=== PATIENT | male | born 1940 | race Caucasian/White ===

== ENCOUNTER 2019-09-22 15:45 | Inpatient (IN) ==
[2019-09-22] MEDS ORDERED: ONDANSETRON HCL/PF 2 MG/ML VIAL IV ONE (16:04)
[2019-09-22] MEDS ORDERED: MORPHINE SULFATE 4 MG/ML SYRG IV ONE (16:04)
--- NOTE | 2019-09-22 16:15 | ERNOTE ---
Abdominal HPI - Narrative Date of Service: 09/22/19 - General Chief Complaint: Abdominal Pain Time Seen by Provider: 09/22/19 15:54 Source: patient, family Exam Limitations: no limitations - Immun/Allergies/Home Medications Immunizatons: IMMUNIZATION HX Immunizations Up to Date Yes History of Influenza Vaccine Yes Hx Pneumococcal Vaccination Yes Allergies/Adverse Reactions: Allergies No Known Allergies Allergy (Verified 04/12/16 14:02) Home Medications: HOME MEDICATIONS Aspirin [Aspirin Chewable] 81 mg PO DAILY 04/09/16 [Last Taken 09/22/19] Metoprolol Tartrate [Lopressor] 25 mg PO BID 04/09/16 [Last Taken 09/22/19] Simvastatin [Zocor] 40 mg PO HS 04/09/16 [Last Taken 09/21/19] amLODIPine BESYLATE [Norvasc] 5 mg PO DAILY 09/22/19 [Last Taken 09/22/19] - Pain Score Pain Score #1 Pain Score: 10 Abdominal Pain Onset Location: RLQ - severe, LLQ - severe, periumbilical - moderate, generalized abdomen - mild - History of Present Illness Narrative: The patient is a 79 year old male who presents for abdominal pain which has been present since Saturday @ 0100. There are associated symptoms lightheadedness, fatigue, fever, chills and vomiting. The patient reports low abdominal pain, 10/10. There are no alleviating factors. There are aggravating factors of activity and oral intake. Previous treatments have included: none. The past medical history includes: HLD and HTN. The social history is negative. The patient has had no known ill contacts. 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 Patient reports watery bowel movement yesterday followed by normal bowel movement. Patient denies blood in stool. Patient was evaluated at [facility] yesterday with CT abdomen/pelvis W/O which they reported to patient as negative and dx with enteritis. Review of Systems - Review of Systems Constitutional: Present: fever, chills, diaphoresis, fatigue EYE: Present: no symptoms reported ENT: Present: no symptoms reported. Absent: ear pain, nasal drainage, sore throat Respiratory: Present: no symptoms reported. Absent: shortness of breath, cough Cardiology: Present: no symptoms reported. Absent: chest pain Gastrointestinal/Abdominal: Present: nausea, vomiting, abdominal pain, eating less, drinking less Genitourinary: Present: decreased urinary output. Absent: dysuria Musculoskeletal: Present: no symptoms reported. Absent: back pain Skin: Present: no symptoms reported. Absent: rash Neurological: Present: dizziness/light-headedness, weakness All Other Systems: All systems neg except as marked Medical History (Last Reviewed 09/22/19 @ 20:48 by Alaina Johnson MD) HLD (hyperlipidemia) HTN (hypertension) Surgical History: Surgical History (Last Reviewed 09/22/19 @ 20:48 by Alaina Johnson MD) History of colonoscopy History of surgery on left wrist ORIF L radius Family History: Family History (Last Reviewed 09/22/19 @ 20:51 by JOY Juárez) Mother Father Social History: (Last Reviewed 09/22/19 @ 20:48 by Alaina Johnson MD) Tobacco: Smoking Status: Former smoker, quit 30 years Physical Exam - Physical Exam General Appearance: Present: wd/wn, alert, moderate distress Head Exam: Present: normal inspection Eye Exam: Normal inspection: bilateral Neck: Present: normal inspection Respiratory: Present: no respiratory distress, no accessory muscle use, lungs clear, rhonchi - left base Cardiovascular/Chest: Present: regular rate, rhythm, no murmur Gastrointestinal/Abdominal: Present: nondistended, soft, no organomegaly, tenderness - periumbilical and lower abdomen, moderate discomfort- mild diffuse discomfort to upper abdomen, abnormal bowel sounds - hypoactive, guarding - LLQ, RLQ. Absent: mass Neurological Exam: Present: alert, oriented, normal mood/affect, no motor/sensory deficits Skin Exam: Present: normal color, warm/dry Progress - Date and Time Seen: Date and Time: 09/22/19 17:54 Patient upon arrival having emesis with smell of stool. Patient pain intolerable. Administration of morphine without relief. Administered dose of Dilaudid pain remains >5/10 but more tolerable. Patient drinking oral contrast for reimaging for evaluation of vomiting and abdominal pain. Patient without recurrent vomiting after administration of anti-emetic. Records from ER visit [facility] yesterday obtained and reviewed. 09/22/19 18:49 Patient remains without recurrent emesis. Patient improved but remains present. Patient visiting with family. Awaiting CT abd/pelvis for further evaluation. CRP 2.3 yesterday increased to 19.4. Gastric-occult positive. WBC 13.9 yesterday decreased to 9.9. Remains to have elevation to neutrophil count with left shift. 09/22/19 20:11 present for patient evaluation. Reviewed imaging results with patient as well as plan of care. - Results and Orders Patient's Lab Results:: I have reviewed the patient's lab results. - Vital Signs Patient's Vital Signs:: I have reviewed the patient's vital signs. Vital Signs: Vital Signs 09/22/19 15:46 Temperature 36.6 C Pulse Rate 94 Respiratory Rate 16 Blood Pressure 106/72 O2 Sat by Pulse Oximetry 94 - X-Ray X-Ray #1 X-Ray: chest Interpretation: Reviewed by me X-ray Comments: IMPRESSION: NO ACUTE CARDIOPULMONARY ABNORMALITY IDENTIFIED. Electronically signed by Greg Capellan D.O.. X-Ray #2 X-Ray: abdomen Interpretation: Reviewed by me X-ray Comments: IMPRESSION: NONSPECIFIC NONOBSTRUCTIVE BOWEL GAS PATTERN SUGGESTIVE OF VIRAL ENTERITIS. Electronically signed by Greg Capellan D.O.. - CT/Ultrasound CT/Ultrasound Narrative: Real radiology preliminary report: Tubular structure extending from the base of the cecum which appears to contain hyperdense calcium or metallic densities. Inspissated barium should be a consideration. The structure is blind ended and this most likely represents an enlarged abnormal appendix and acute appendicitis. Please correlate with any surgical history. No perforation or abscess. Small amount of free fluid in the deep pelvis. Enlarged prostate gland. Urinary bladder wall is thickened which may be reflected of under distention, cystitis or bladder outlet obstruction. No ureteral calculi or upper urinary obstruction. L1 compression fracture of indeterminate age. - Progress/Reassessment Chief Complaint: Abdominal Pain Progress:: Improved Departure Clinical Impression: Acute appendicitis Qualifiers: Acute appendicitis type: with generalized peritonitis Appendicitis gangrene presence: unspecified whether gangrene present Appendicitis perforation presence: unspecified whether perforation present Appendicitis abscess presence: unspecified whether abscess present Qualified Code(s): K35.20 - Acute appendicitis with generalized peritonitis, without abscess - Departure Disposition: Still a patient Condition: Good
[2019-09-22 16:30] LABS: Hematocrit 51.3 % (42.0-52.0); Hemoglobin 17.6 gm/dL (13.5-18.0); Mean Cell Volume 86.8 fl (78-100); Mean Corpuscular Hemoglobin 29.8 pg (27-31); Mean Corpuscular Hgb Conc 34.3 g/dl (32-36); Mean Platelet Volume 9.8 fl (8-11.3); Neutrophil # 8.5 K/mm3 (1.3-6.0); Neutrophil % 86.3 % (42-75.0); Platelet Count 206 K/mm3 (150-450); Red Blood Count 5.91 M/mm3 (4.7-6.0); Red Cell Distribution Width 12.6 % (11.5-14.0); White Blood Count 9.9 K/mm3 (4.0-10.5)
[2019-09-22 16:45] LABS: Albumin * 3.9 gm/dl (3.4-5.0); Anion Gap 17.1 mmol/L (6.8-13.8); BUN/Creatinine Ratio 13.3 (9.0-21.6); Bilirubin, Total 4.8 mg/dL (0.0-1.1); Ca. Corrected For Albumin 8.6 mg/dL (8.4-10.2); Calcium * 8.8 mg/dL (7.9-10.9); Carbon Dioxide 24.2 mmol/L (24-32.6); Potassium 3.3 mmol/L (3.4-4.6); Total Protein 7.9 gm/dL (6.2-8.2)
[2019-09-22] MEDS ORDERED: HYDROmorphone HCL 1 MG/ML DISP.SYRIN IV ONE (16:48)
[2019-09-22] MEDS ORDERED: DIATRIZOATE MEGLUMINE, SODIUM 30 ML BTL PO ONE ×2 (16:49→16:50)
[2019-09-22] MEDS ORDERED: NORMAL SALINE 1,000 ML IV ONE (16:49)
[2019-09-22 16:55] LABS: CRP 19.4 mg/dL (0.0-0.9)
--- NOTE | 2019-09-22 20:44 | ANES ---
Anesthesia Pre Procedure Eval Vitals/Labs: Last Vital Signs Temp 36.6 C 09/22/19 15:46 Pulse 89 09/22/19 20:08 Resp 22 H 09/22/19 20:08 BP 129/83 09/22/19 20:08 Pulse Ox 93 09/22/19 20:08 HOME MEDICATIONS Aspirin [Aspirin Chewable] 81 mg PO DAILY 04/09/16 [Last Taken 09/22/19] Metoprolol Tartrate [Lopressor] 25 mg PO BID 04/09/16 [Last Taken 09/22/19] Simvastatin [Zocor] 40 mg PO HS 04/09/16 [Last Taken 09/21/19] amLODIPine BESYLATE [Norvasc] 5 mg PO DAILY 09/22/19 [Last Taken 09/22/19] Allergies/Adverse Reactions: Allergies Allergy/AdvReac Type Severity Reaction Status Date / Time No Known Allergies Allergy Verified 04/12/16 14:02 - Planned Procedure Planned Procedure: stomach pain Medication List Reviewed:: Yes Allergies Verified: Yes Medical History (Last Reviewed 09/22/19 @ 20:41 by Anant Benitez CRNA) HLD (hyperlipidemia) HTN (hypertension) Surgical History (Last Reviewed 09/22/19 @ 20:41 by Anant Benitez CRNA) History of colonoscopy History of surgery on left wrist ORIF L radius - Family Anesthesia History Family History:: no untoward family reactions to anesthesia, no familial bleeding tendencies, no family history of clotting disorders, no family history of premature - Airway/Neck/Teeth Denture Type: Partial upper, Partial lower Neck Exam: full range of motion Mallampatti Score: 3 Thyromental (T-M) distance: > 6 cm Mandibulo Hyoid distance: > 3 cm - Respiratory Respiratory History: sleep apnea Respiratory Physical: lungs clear Smoking Status: Former smoker - quit 30 years Sleep Apnea currently treated: No - refuses treatment Sleep Apnea by current assessment: Yes Discussed Risks/Treatment of MACI: Yes - Cardiovascular Cardiac History: [place] - 2006, CAD, hypertension, hyperlipidemia Tolerate Activity: Fair Heart Sounds: S1 & S2, Regular - Gastrointestinal NPO since: toast this am gatorade 1400 - Anesthesia Assessment and Plan ASA Class: PS, III, E Anesthesia Type Plan: General ET Planned difficult intubation/equipment available: Yes
[2019-09-22] MEDS ORDERED: PROPOFOL VIAL IV ONE (20:50)
[2019-09-22] MEDS ORDERED: ONDANSETRON HCL/PF 2 MG/ML VIAL ONE (20:50)
[2019-09-22] MEDS ORDERED: KETOROLAC TROMETHAMINE 30 MG/ML VIAL ONE (20:50)
[2019-09-22] MEDS ORDERED: DEXAMETHASONE SODIUM PHOSPHATE 10 MG/ML VIAL ONE (20:50)
[2019-09-22] MEDS ORDERED: SUCCINYLCHOLINE CHLORIDE 20 MG/ML VIAL ONE (20:50)
[2019-09-22] MEDS ORDERED: ISOPROPYL ALCOHOL 480 APPL BTL MC ONE (20:52)
[2019-09-22] MEDS ORDERED: MUPIROCIN 22 APPL TUBE TP ONE ×2 (20:52→23:33)
--- NOTE | 2019-09-22 20:54 | HP ---
Chief Complaint - Chief Complaint Date of Service: 09/22/19 Time of Service: 20:44 Chief Complaint: appendicitis History of Present Illness: He woke up 1AM yesterday with lower abdominal pain. Was evaluated in [place] with non-contrast CT and told he had enteritis and to follow a BRAT diet His pain continued today and got worse so he came here. CT shows inflammation and fluid RLQ with barium in the appendix. Had colonoscopy [facility] couple of months ago with a completion barium enema. Only other abdominal surgery was laparoscopic cholecystectomy. Medical History (Last Reviewed 09/22/19 @ 20:48 by Alaina Johnson MD) HLD (hyperlipidemia) HTN (hypertension) Surgical History: Surgical History (Last Reviewed 09/22/19 @ 20:48 by Alaina Johnson MD) History of colonoscopy History of surgery on left wrist ORIF L radius Social History: (Last Reviewed 09/22/19 @ 20:48 by Alaina Johnson MD) Tobacco: Smoking Status: Former smoker, quit 30 years Review Of Systems (GEN) - Review of Systems Generalized/Overall Review: Present: Weakness, Malaise. Absent: Chills, Fever EENTM: Present: Other - bad breath Respiratory: Absent: Cough, Shortness of Breath Cardiac: Absent: Chest Pain, Edema, Palpitations Abdominal: Present: Vomiting, Abdominal Pain Genitourinary: Present: No Symptoms Reported Musculoskeletal: Present: No Symptoms Reported Neurological: Present: No Symptoms Reported Skin: Present: No Symptoms Reported Immunizations: IMMUNIZATION HX Immunizations Up to Date Yes History of Influenza Vaccine Yes Hx Pneumococcal Vaccination Yes Allergies/Adverse Reactions: Allergies Allergy/AdvReac Type Severity Reaction Status Date / Time No Known Allergies Allergy Verified 04/12/16 14:02 Home Medications: HOME MEDICATIONS Aspirin [Aspirin Chewable] 81 mg PO DAILY 04/09/16 [Last Taken 09/22/19] Metoprolol Tartrate [Lopressor] 25 mg PO BID 04/09/16 [Last Taken 09/22/19] Simvastatin [Zocor] 40 mg PO HS 04/09/16 [Last Taken 09/21/19] amLODIPine BESYLATE [Norvasc] 5 mg PO DAILY 09/22/19 [Last Taken 09/22/19] Exam - Exam Vital Signs: Vital Signs - Last Taken Temp 36.6 C 09/22/19 15:46 Pulse 89 09/22/19 20:08 Resp 22 H 09/22/19 20:08 BP 129/83 09/22/19 20:08 Pulse Ox 93 09/22/19 20:08 Constitutional: Present: Alert, Oriented x3, Cooperative, Well developed, Well nourished, Overweight ENT Exam: Present: normal ENT inspection, other - partials Eye Exam: bilateral eye: normal inspection Neck: Present: full range of motion, normal inspection Respiratory: Present: lungs clear, normal breath sounds, no respiratory distress Cardiovascular/Chest: Present: normal peripheral pulses, regular rate, rhythm, no murmur Abdomen: Present: other - distended. 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 as tested, normal cerebellar test, no motor/sensory deficits Appearance: Present: appropriate appearance, appropriate insight Eye contact: Present: cooperative, good eye contact, normal speech Thoughts: Present: normal thought pattern Diagnostic Studies: Abnormal Lab Results 09/22/19 09/22/19 09/22/19 Range/Units 16:22 16:22 Unknown Neutrophils % 86.3 H (42-75.0) % Lymphocytes % 6.1 L (20-51) % Neutrophils # 8.5 H (1.3-6.0) K/mm3 Lymphocytes # 0.60 L (1.5-3.5) k/mm3 Potassium 3.3 L (3.4-4.6) mmol/L Anion Gap 17.1 H (6.8-13.8) mmol/L Creatinine 1.43 H (0.4-1.4) mg/dL Est GFR (Non-Af Amer) 51 L D (60-130) mL/min Random Glucose 134 H (70-110) mg/dL Total Bilirubin 4.8 H (0.0-1.1) mg/dL C-Reactive Prot, Quant 19.4 H (0.0-0.9) mg/dL Gastric Occult Blood Positive H Laboratory Results WBC 9.9 K/mm3 (4.0-10.5) 09/22/19 16:22 RBC 5.91 M/mm3 (4.7-6.0) 09/22/19 16:22 Hgb 17.6 gm/dL (13.5-18.0) 09/22/19 16:22 Hct 51.3 % (42.0-52.0) 09/22/19 16:22 MCV 86.8 fl (78-100) 09/22/19 16:22 MCH 29.8 pg (27-31) 09/22/19 16:22 MCHC 34.3 g/dl (32-36) 09/22/19 16:22 RDW 12.6 % (11.5-14.0) 09/22/19 16:22 Plt Count 206 K/mm3 (150-450) 09/22/19 16:22 MPV 9.8 fl (8-11.3) 09/22/19 16:22 Immature Gran % (Auto) 0.20 % (0.001-0.429) 09/22/19 16:22 Immature Gran # (Auto) 0.02 K/mm3 (0.000-0.0310) 09/22/19 16:22 Neutrophils % 86.3 % (42-75.0) H 09/22/19 16:22 Lymphocytes % 6.1 % (20-51) L 09/22/19 16:22 Monocytes % 7.1 % (0.0-9) 09/22/19 16:22 Eosinophils % 0.0 % (0.0-3.0) 09/22/19 16:22 Basophils % 0.3 % (0.0-1.0) 09/22/19 16:22 Nucleated RBC % 0.0 k/mm3 (0-1) 09/22/19 16:22 Neutrophils # 8.5 K/mm3 (1.3-6.0) H 09/22/19 16:22 Lymphocytes # 0.60 k/mm3 (1.5-3.5) L 09/22/19 16:22 Monocytes # 0.7 k/mm3 (0.0-1.0) 09/22/19 16:22 Eosinophils # 0.0 k/mm3 (0.0-0.7) 09/22/19 16:22 Absolute Basophils 0.0 k/mm3 (0.0-0.1) 09/22/19 16:22 Sodium 137 mmol/L (132-142) 09/22/19 16:22 Plasma Sodium 138 mmol/L (130-142) 09/22/19 16:22 Potassium 3.3 mmol/L (3.4-4.6) L 09/22/19 16:22 Chloride 99 mmol/L (97-106) 09/22/19 16:22 Carbon Dioxide 24.2 mmol/L (24-32.6) 09/22/19 16:22 Anion Gap 17.1 mmol/L (6.8-13.8) H 09/22/19 16:22 BUN 19 mg/dL (6-23) 09/22/19 16:22 Creatinine 1.43 mg/dL (0.4-1.4) H 09/22/19 16:22 Est GFR (Non-Af Amer) 51 mL/min (60-130) L D 09/22/19 16:22 BUN/Creatinine Ratio 13.3 (9.0-21.6) 09/22/19 16:22 Random Glucose 134 mg/dL (70-110) H 09/22/19 16:22 Calcium 8.8 mg/dL (7.9-10.9) 09/22/19 16:22 Calcium Adj for Albumin 8.6 mg/dL (8.4-10.2) 09/22/19 16:22 Total Bilirubin 4.8 mg/dL (0.0-1.1) H 09/22/19 16:22 AST 31 U/L (0-48) 09/22/19 16:22 ALT 27 U/L (19-67) 09/22/19 16:22 Alkaline Phosphatase 71 U/L (50-170) 09/22/19 16:22 C-Reactive Prot, Quant 19.4 mg/dL (0.0-0.9) H 09/22/19 16:22 Total Protein 7.9 gm/dL (6.2-8.2) 09/22/19 16:22 Albumin 3.9 gm/dl (3.4-5.0) 09/22/19 16:22 Amylase 57 U/L (25-115) 09/22/19 16:22 Lipase 185 U/L (73-393) 09/22/19 16:22 Gastric Occult Blood Positive H 09/22/[address] and plain film images and reports reviewed Assessment/Plan - Assessment/Plan (1) Acute appendicitis Assessment: Appendicitis and appendectomy explained. risks and expected hospital course explained. After an interactive discussion his questions were answered to his apparent satisfaction and he has given informed consent for appendectomy chlorhexidine wipes, IV Mefoxin, SCD's Problem: Acute Qualifiers: Acute appendicitis type: with generalized peritonitis Appendicitis gangrene presence: unspecified whether gangrene present Appendicitis perforation presence: unspecified whether perforation present Appendicitis abscess presence: unspecified whether abscess present Qualified Code(s): K35.20 - Acute appendicitis with generalized peritonitis, without abscess
[2019-09-22] MEDS: RINGER'S SOLUTION,LACTATED 1,000 ML IV PRN ×2 (21:10→23:30)
[2019-09-22] MEDS ORDERED: CEFOXITIN SODIUM 2 GM in DEXTROSE 5 % IN WATER 100 ML IV PRN ×2 (22:00)
[2019-09-22] MEDS ORDERED: oxyCODONE HCL/ACETAMINOPHEN 1 TAB TABLET PO PRN (23:48)
--- NOTE | 2019-09-22 23:53 | ANES ---
Post Anesthesia Discharge - Transfer of Care Transfer of Care handoff given to nurse: Yes - Discharge from PACU Discharge from PACU when meets criteria: Yes - Comfortable in PACU.
--- NOTE | 2019-09-23 00:09 | ANES ---
Post Anesthesia Assessment - Vital Signs Vitals: Last Vital Signs Temp 37.2 C 09/23/19 00:05 Pulse 72 09/23/19 00:05 Resp 22 H 09/23/19 00:05 BP 118/61 09/23/19 00:05 Pulse Ox 96 09/23/19 00:05 Airway Patency: Normal - Mental Status Level Of Consciousness: Awake, Alert, Appropriate - Pain Level Pain Score: 0 - N/V Assessment Nausea/Vomiting Presence: None Dehydration:: No
[2019-09-23] MEDS: ONDANSETRON HCL/PF 2 MG/ML VIAL IV PRN ×3 (02:31→14:18)
[2019-09-23] MEDS: CEFOXITIN SODIUM 1 GM in DEXTROSE 5 % IN WATER 100 ML IV SCH ×8 (02:36→21:22)
[2019-09-23] MEDS ORDERED: BUPIVACAINE HCL/EPINEPHRINE 50 ML VIAL IJ PRN (06:00)
[2019-09-23] MEDS: PANTOPRAZOLE SODIUM 40 MG in NORMAL SALINE 100 ML IV SCH (08:57)
[2019-09-23] MEDS ORDERED: METOCLOPRAMIDE HCL 5 MG/ML VIAL IV ONE (11:03)
[2019-09-23] MEDS ORDERED: amLODIPine BESYLATE 5 MG TABLET PO SCH (11:15)
[2019-09-23] MEDS: RINGER'S SOLUTION,LACTATED 1,000 ML IV PRN ×2 (11:35→20:39)
--- NOTE | 2019-09-23 11:46 | OR ---
Operative Report - Dictated Report Narrative: Date of operation 09/22/2019 Preoperative diagnosis: Acute appendicitis Postoperative diagnosis: Severe acute appendicitis with generalized peritonitis Operation: Laparoscopic appendectomy Surgeon: ILSA Johnson MD Anesthesia: Gen. maurice Benitez CRNA Indications for procedure: The patient is an 79-year-old male who awoke with severe right lower quadrant pain on 09/21/2019. He was evaluated in the ER in [place]. He had a CT scan of the abdomen and pelvis without p.o. contrast. He was discharged home with a presumptive diagnosis of enteritis and advised a brat diet. He continued to have nausea and vomiting with worsening abdominal discomfort and presented to our emergency room. He was found to have an elevated white blood cell count with lower abdominal tenderness and CT scan evidence of acute appendicitis with fluid in the right lower quadrant and pelvis. Findings: Severe acute appendicitis with generalized peritonitis Narrative of procedure: The patient was identified preoperatively, and prior to the administration of anesthetic a multidisciplinary timeout was observed. The patient was placed supine, SCDs were applied, and 2 g of intravenous Mefoxin administered. Winston scope endotracheal intubation was performed and general endotracheal anesthetic was administered. The patient's abdomen was prepped with Betadine solution, and a generous operating field outlined with 4 sterile towels. The remainder the patient was covered with a sterile disposable drape. A transverse infraumbilical skin incision was made, and dissection was carried along the umbilical stalk until the fascia of the linea alba was encountered. This was incised. The peritoneum was elevated and incised to allow entry into the abdomen under direct vision. A Hussan cannula was placed and the abdomen insufflated with CO2. The laparoscopic camera was introduced and the abdomen briefly explored. Those portions of the liver visualized appeared normal. There was marked inflammation in the right lower quadrant with exudate. There was erythema of the parietal peritoneum. There was dilated small intestine in the pelvis with green fluid. Next under direct vision, 2 additional working ports were inserted through separate skin incisions, one in the suprapubic area one in the left lower quadrant. The patient was placed in reverse Trendelenburg position and tilted to the left to facilitate exposure. The apex of the cecum was retracted cephalad revealing a gangrenous appendiceal base. The appendix coursed into the pelvis between inflamed loops of small intestine. An additional 5 mm working port was inserted under direct vision in the right upper quadrant to facilitate development of the appendix. The appendix was gradually developed by clamp over clamp advancement into the pelvis until the tip of the appendix was liberated and the entire appendix could be elevated for inspection. A window was created adjacent to the appendiceal base which was then transected with a laparoscopic DANIEL stapling device. The stump of the appendix was seen to be hemostatic and gas and liquid tight. The distal one half of the appendix and attendant mesoappendix were transected with a DANIEL stapling device. The liberated specimen was parked in the right lower quadrant. The proximal portion of the appendix was elevated and the remaining mesoappendix was transected with a DANIEL stapling device. The mesoappendix was seen to be hemostatic. The 2 p ortions of the appendix were then placed in an Endobag and parked in the right lower quadrant. The right lower quadrant was again inspected to ensure hemostasis and suctioned clean. The pelvis was again suctioned clean. The small working ports were then withdrawn under direct vision to ensure entry site hemostasis. The appendix was removed in conjunction with the Hussan cannula. The pneumoperitoneum was allowed to escape, and after receiving a correct sponge needle and instrument count attention was turned to closing the abdomen. The fascia and peritoneum at the umbilicus were approximated with interrupted sutures of #1 Vicryl. Skin incisions were approximated with interrupted vertical mattress sutures of 4-0 nylon. The operative sites were washed and dried. Dressings of Bactroban ointment and large Band-Aids were applied to the small port sites. The umbilical incision was dressed with Bactroban ointment, 2 x 2, large Band-Aid, and Medipore tape. The operative procedure was terminated at this point. There was no measurable blood loss. 0.25% Marcaine with epinephrine was used for local anesthetic infiltration. The appendix was submitted to pathology. The patient tolerated the anesthetic and procedure well without complication and was transferred to the recovery room awake, extubated, and in stable condition. Reviewed and electronically signed
--- NOTE | 2019-09-23 11:54 | PN ---
Subjective - Date and Time Seen Date: 09/23/19 Time: 11:47 Subjective Narrative: He is postop day 1 following laparoscopic appendectomy for severe appendicitis with generalized peritonitis. He states his presenting pain is resolved however he has considerable heartburn and vomited once. Objective Objective Narrative: His vital signs have remained normal, however his blood pressure is trending up. His SaO2 required supplemental O2 overnight however has improved as he has ambulated. - Review of Systems Generalized/Overall Review: Denies: Chills, Fever EENTM: Reports: No Symptoms Reported Respiratory: Denies: Cough, Shortness of Breath Cardiac: Denies: Chest Pain Abdominal: Reports: Other - His presenting pain has resolved. He does have considerable heartburn and did vomit once. Genitourinary Symptoms: Reports: No Symptoms Reported Musculoskeletal Complaints: Reports: No Symptoms Reported Neurological: Reports: No Symptoms Reported Skin: Reports: No Symptoms Reported - Vitals Vitals: Last Vital Signs Temp 36.3 C 09/23/19 04:01 Pulse 81 09/23/19 05:08 Resp 20 09/23/19 05:08 BP 137/75 09/23/19 05:08 Pulse Ox 97 09/23/19 05:08 - Abnormal Lab Findings Abnormal Lab Findings: Abnormal Lab Results 09/22/19 09/22/19 09/22/19 Range/Units 16:22 16:22 Unknown Neutrophils % 86.3 H (42-75.0) % Lymphocytes % 6.1 L (20-51) % Neutrophils # 8.5 H (1.3-6.0) K/mm3 Lymphocytes # 0.60 L (1.5-3.5) k/mm3 Potassium 3.3 L (3.4-4.6) mmol/L Anion Gap 17.1 H (6.8-13.8) mmol/L Creatinine 1.43 H (0.4-1.4) mg/dL Est GFR (Non-Af Amer) 51 L D (60-130) mL/min Random Glucose 134 H (70-110) mg/dL Total Bilirubin 4.8 H (0.0-1.1) mg/dL C-Reactive Prot, Quant 19.4 H (0.0-0.9) mg/dL Gastric Occult Blood Positive H - Exam Constitutional: Present: Alert, Oriented x3, Cooperative, Well nourished, Mild distress ENT Exam: Present: normal ENT inspection, other - Flushed, nasal O2 in place Neck: Present: normal inspection Respiratory: Present: no respiratory distress Cardiovascular/Chest: Present: regular rate, rhythm Abdomen: Present: other - He is distended and tympanitic without percussion tenderness. The dressings are dry. Extremity: Present: normal range of motion, no pedal edema, no calf tenderness, other - SCDs in place Skin Exam: Present: warm/dry Neurologic: Present: component lab tech II-XII nml as tested, no motor/sensory deficits, normal mood/affect, oriented x 3 Appearance: Present: appropriate appearance, appropriate insight, no memory impairment Eye contact: Present: cooperative, good eye contact, normal speech Thoughts: Present: normal thought pattern Assessment/Plan Plan Narrative: Will encourage ambulation and pulmonary toilet, wean O2 if possible. Continue IV fluids. Will stick to clear liquids for now. Restart home medications. Continue IV antibiotics and monitor progress. Will reevaluate later today regarding need for admission to acute care - Problems/Diagnosis (1) Acute appendicitis Problem: Acute Qualifiers: Acute appendicitis type: with generalized peritonitis Appendicitis gangrene presence: unspecified whether gangrene present Appendicitis perforation presence: unspecified whether perforation present Appendicitis abscess presence: unspecified whether abscess present Qualified Code(s): K35.20 - Acute appendicitis with generalized peritonitis, without abscess (2) Hypertension Problem: Chronic Qualifiers: Hypertension type: essential hypertension Qualified Code(s): I10 - Essential (primary) hypertension Narrative: We will continue home medications (3) Hyperlipidemia Problem: Acute Qualifiers: Hyperlipidemia type: unspecified Qualified Code(s): E78.5 - Hyperlipidemia, unspecified Narrative: We will continue home medication as p.o. intake improves
[2019-09-23] MEDS: METOPROLOL TARTRATE 25 MG TABLET PO SCH ×2 (11:59→20:37)
[2019-09-23] MEDS ORDERED: BISACODYL 10 MG SUPP.RECT RC ONE (16:45)
[2019-09-23] MEDS: METOCLOPRAMIDE HCL 5 MG/ML VIAL IV PRN (17:30)
[2019-09-23] MEDS ORDERED: SIMVASTATIN 40 MG TABLET PO SCH (21:00)
--- NOTE | 2019-09-23 21:00 | PN ---
Dictated Progress Note - Date and Time Seen: Date: 09/23/19 Time: 20:58 - Progress Note Narrative: Vital Signs - Last Taken Temp 37.1 C 09/23/19 18:50 Pulse 100 09/23/19 18:50 Resp 18 09/23/19 18:50 BP 128/80 09/23/19 18:50 Pulse Ox 94 09/23/19 18:50 He has had abdominal distention with multiple episodes of vomiting. Abdominal x-ray shows dilated small bowel compatible with a postoperative ileus. Nasogastric tube was inserted with return of a large amount of obviously heme positive material. We will keep an n.p.o. status. He is on pantoprazole. Continue IV fluids. Will check CBC tonight and in a.m. with BMP. Discussed situation at length with the patient and his We will reevaluate the patient in the morning
[2019-09-23 21:15] LABS: Hematocrit 42.2 % (42.0-52.0); Hemoglobin 14.6 gm/dL (13.5-18.0); Mean Cell Volume 87.7 fl (78-100); Mean Corpuscular Hemoglobin 30.4 pg (27-31); Mean Corpuscular Hgb Conc 34.6 g/dl (32-36); Neutrophil # 14.7 K/mm3 (1.3-6.0); Neutrophil % 89.4 % (42-75.0); Platelet Count 189 K/mm3 (150-450); Red Blood Count 4.81 M/mm3 (4.7-6.0); Red Cell Distribution Width 12.7 % (11.5-14.0); White Blood Count 16.4 K/mm3 (4.0-10.5)
[2019-09-24] MEDS: CEFOXITIN SODIUM 1 GM in DEXTROSE 5 % IN WATER 100 ML IV SCH ×8 (02:33→20:35)
[2019-09-24] MEDS: HYDROmorphone HCL 1 MG/ML DISP.SYRIN IV PRN ×3 (04:47→23:56)
[2019-09-24] MEDS: RINGER'S SOLUTION,LACTATED 1,000 ML IV PRN ×3 (05:42→23:48)
[2019-09-24 07:36] LABS: Hematocrit 38.9 % (42.0-52.0); Hemoglobin 13.4 gm/dL (13.5-18.0); Mean Corpuscular Hemoglobin 30.3 pg (27-31); Mean Corpuscular Hgb Conc 34.4 g/dl (32-36); Mean Platelet Volume 10.3 fl (8-11.3); Neutrophil # 13.3 K/mm3 (1.3-6.0); Neutrophil % 89.3 % (42-75.0); Platelet Count 208 K/mm3 (150-450); Red Blood Count 4.42 M/mm3 (4.7-6.0); Red Cell Distribution Width 12.7 % (11.5-14.0); White Blood Count 14.8 K/mm3 (4.0-10.5)
[2019-09-24 07:42] LABS: Anion Gap 9.9 mmol/L (6.8-13.8); BUN/Creatinine Ratio 23.4 (9.0-21.6); Calcium * 8.2 mg/dL (7.9-10.9); Carbon Dioxide 29.6 mmol/L (24-32.6); Estimated Creat Clear 49.9; Potassium 3.5 mmol/L (3.4-4.6)
[2019-09-24] MEDS: PANTOPRAZOLE SODIUM 40 MG in NORMAL SALINE 100 ML IV SCH (08:48)
--- NOTE | 2019-09-24 10:02 | PN ---
Subjective - Date and Time Seen Date: 09/24/19 Time: 10:02 Subjective Narrative: He had nausea and vomiting after laparoscopic appendectomy for severe acute appendicitis with generalized peritonitis. X-ray demonstrated probable postop ileus. NG tube was inserted. He feels much better today. He has mainly incisional and lower abdominal discomfort from the incisions. His heartburn is resolved. He has been up walking. He has not moved his bowels or passed gas Objective Objective Narrative: He has appeared more comfortable over the course of the day. He has tolerated cyclic NG clamping - Review of Systems Generalized/Overall Review: Denies: Chills, Fever EENTM: Reports: Other - Some discomfort from the nasogastric tube Respiratory: Reports: Cough - He did cough after using incentive spirometer earlier today. Denies: Shortness of Breath Cardiac: Denies: Chest Pain, Palpitations Abdominal: Reports: Other - His abdomen feels softer and he has not thrown up again Genitourinary Symptoms: Reports: No Symptoms Reported Musculoskeletal Complaints: Reports: No Symptoms Reported Neurological: Reports: No Symptoms Reported Skin: Reports: No Symptoms Reported - Vitals Vitals: Last Vital Signs Temp 36.2 C 09/24/19 06:49 Pulse 73 09/24/19 06:49 Resp 20 09/24/19 06:49 BP 122/73 09/24/19 06:49 Pulse Ox 93 09/24/19 06:49 - Abnormal Lab Findings Abnormal Lab Findings: Abnormal Lab Results 09/23/19 09/24/19 09/24/19 Range/Units 21:13 07:20 07:20 WBC 16.4 H D 14.8 H (4.0-10.5) K/mm3 RBC 4.42 L (4.7-6.0) M/mm3 Hgb 13.4 L (13.5-18.0) gm/dL Hct 38.9 L (42.0-52.0) % Immature Gran % (Auto) 0.90 H 0.50 H (0.001-0.429) % Immature Gran # (Auto) 0.15 H 0.07 H (0.000-0.0310) K/mm3 Neutrophils % 89.4 H 89.3 H (42-75.0) % Lymphocytes % 4.3 L 5.7 L (20-51) % Neutrophils # 14.7 H 13.3 H (1.3-6.0) K/mm3 Lymphocytes # 0.71 L 0.84 L (1.5-3.5) k/mm3 BUN 33 H D (6-23) mg/dL Creatinine 1.41 H (0.4-1.4) mg/dL Est GFR (Non-Af Amer) 51 L (60-130) mL/min BUN/Creatinine Ratio 23.4 H (9.0-21.6) Random Glucose 127 H (70-110) mg/dL - Exam Constitutional: Present: Alert, Oriented x3, Cooperative, Well nourished, Mild distress - Able to sit up in bed by himself and ambulate ENT Exam: Present: normal ENT inspection Neck: Present: full range of motion, normal inspection Respiratory: Present: normal breath sounds, no respiratory distress Cardiovascular/Chest: Present: regular rate, rhythm, no edema Abdomen: Present: other - His abdomen is much softer than yesterday. Bowel sounds are still very hypoactive /Rectal: Present: Exam deferred Extremity: Present: normal range of motion, no pedal edema, no calf tenderness Skin Exam: Present: normal color Neurologic: Present: survey party chief II-XII nml as tested, no motor/sensory deficits Appearance: Present: appropriate appearance, appropriate insight, no memory impairment Eye contact: Present: cooperative, good eye contact, normal speech Thoughts: Present: normal thought pattern Assessment/Plan - Problems/Diagnosis (1) Acute appendicitis Problem: Acute Qualifiers: Acute appendicitis type: with generalized peritonitis Appendicitis gangrene presence: unspecified whether gangrene present Appendicitis perforation presence: unspecified whether perforation present Appendicitis abscess presence: unspecified whether abscess present Qualified Code(s): K35.20 - Acute appendicitis with generalized peritonitis, without abscess Narrative: We will continue the IV Mefoxin and recheck CBC in the morning. We will continue cyclic NG tube clamping. He will require admission to acute care status (2) Hypertension Problem: Chronic Qualifiers: Hypertension type: essential hypertension Qualified Code(s): I10 - Essential (primary) hypertension Narrative: Will restart his amlodipine and metoprolol (3) Hyperlipidemia Problem: Acute Qualifiers: Hyperlipidemia type: unspecified Qualified Code(s): E78.5 - Hyperlipidemia, unspecified Narrative: Hold simvastatin for now
[2019-09-24] MEDS: amLODIPine BESYLATE 5 MG TABLET PO SCH (19:22)
[2019-09-24] MEDS: METOPROLOL TARTRATE 25 MG TABLET PO SCH (19:22)
[2019-09-25] MEDS: CEFOXITIN SODIUM 1 GM in DEXTROSE 5 % IN WATER 100 ML IV SCH ×8 (02:59→20:00)
[2019-09-25 07:16] LABS: Hematocrit 36.6 % (42.0-52.0); Hemoglobin 12.4 gm/dL (13.5-18.0); Mean Cell Volume 89.1 fl (78-100); Mean Corpuscular Hemoglobin 30.2 pg (27-31); Mean Corpuscular Hgb Conc 33.9 g/dl (32-36); Mean Platelet Volume 10.1 fl (8-11.3); Neutrophil # 6.6 K/mm3 (1.3-6.0); Neutrophil % 79.4 % (42-75.0); Platelet Count 196 K/mm3 (150-450); Red Blood Count 4.11 M/mm3 (4.7-6.0); White Blood Count 8.3 K/mm3 (4.0-10.5)
[2019-09-25] MEDS: HYDROmorphone HCL 1 MG/ML DISP.SYRIN IV PRN (08:40)
[2019-09-25] MEDS: RINGER'S SOLUTION,LACTATED 1,000 ML IV PRN ×2 (08:44→18:30)
[2019-09-25] MEDS: PANTOPRAZOLE SODIUM 40 MG in NORMAL SALINE 100 ML IV SCH (08:44)
[2019-09-25] MEDS ORDERED: BISACODYL 10 MG SUPP.RECT RC ONE (10:26)
[2019-09-25] MEDS: amLODIPine BESYLATE 5 MG TABLET PO SCH (10:33)
[2019-09-25] MEDS: METOPROLOL TARTRATE 25 MG TABLET PO SCH ×2 (10:33→17:19)
--- NOTE | 2019-09-25 10:35 | PN ---
Subjective - Date and Time Seen Date: 09/25/19 Time: 10:27 Objective - Review of Systems Generalized/Overall Review: Denies: Chills, Fever EENTM: Reports: Other - Some discomfort from the nasogastric tube Respiratory: Denies: Cough, Shortness of Breath - His SaO2 has improved with use of incentive spirometry Cardiac: Denies: Chest Pain, Palpitations Abdominal: Reports: Other - His only abdominal pain are some intermittent sharp cramps. He has belched. He has not passed gas Genitourinary Symptoms: Reports: No Symptoms Reported Musculoskeletal Complaints: Reports: No Symptoms Reported Neurological: Reports: No Symptoms Reported Skin: Reports: No Symptoms Reported - Vitals Vitals: Last Vital Signs Temp 36.3 C 09/25/19 10:00 Pulse 80 09/25/19 10:00 Resp 16 09/25/19 10:00 BP 134/67 09/25/19 10:00 Pulse Ox 96 09/25/19 10:00 - Abnormal Lab Findings Abnormal Lab Findings: Abnormal Lab Results 09/25/19 Range/Units 07:10 RBC 4.11 L (4.7-6.0) M/mm3 Hgb 12.4 L (13.5-18.0) gm/dL Hct 36.6 L (42.0-52.0) % Neutrophils % 79.4 H (42-75.0) % Lymphocytes % 11.4 L (20-51) % Neutrophils # 6.6 H (1.3-6.0) K/mm3 Lymphocytes # 0.94 L (1.5-3.5) k/mm3 - Exam Constitutional: Present: Alert, Oriented x3, Cooperative, Mild distress ENT Exam: Present: normal ENT inspection, other - NG tube in good position. Neck: Present: full range of motion, normal inspection Respiratory: Present: lungs clear Cardiovascular/Chest: Present: regular rate, rhythm Abdomen: Present: other - Distended and tympanitic but no percussion tenderness or rebound. No bowel sounds over 2 minutes /Rectal: Present: Exam deferred Extremity: Present: normal range of motion, no pedal edema, no calf tenderness Skin Exam: Present: normal color Neurologic: Present: water meter mechanic II-XII nml as tested, no motor/sensory deficits Appearance: Present: appropriate appearance, appropriate insight, no memory impairment Eye contact: Present: cooperative, good eye contact, normal speech Thoughts: Present: normal thought pattern Assessment/Plan - Problems/Diagnosis (1) Acute appendicitis Problem: Acute Qualifiers: Acute appendicitis type: with generalized peritonitis Appendicitis gangrene presence: unspecified whether gangrene present Appendicitis perforation presence: unspecified whether perforation present Appendicitis abscess presence: unspecified whether abscess present Qualified Code(s): K35.20 - Acute appendicitis with generalized peritonitis, without abscess Narrative: His white blood cell count has decreased to normal. No fever or tachycardia. Still no bowel activity. The NG output is now bilious in character. He was not obstructed on the initial CT scan, so hopefully this represents an ileus and not an operative cause for bowel obstruction. We will continue cycle clamping the NG tube. Encourage ambulation. Dulcolax suppository ADDENDUM 5PM : He did pass some gas and had small amount of stool. Abdomen is softer but still quiet. Will leave NG on suction tonight. (2) Hypertension Problem: Chronic Qualifiers: Hypertension type: essential hypertension Qualified Code(s): I10 - Essential (primary) hypertension Narrative: Vital signs are normal after reinstitution of his antihypertensive medication (3) Hyperlipidemia Problem: Acute Qualifiers: Hyperlipidemia type: unspecified Qualified Code(s): E78.5 - Hyperlipidemia, unspecified Narrative: We will plan to restart his statin tonight
[2019-09-26] MEDS: CEFOXITIN SODIUM 1 GM in DEXTROSE 5 % IN WATER 100 ML IV SCH ×8 (02:13→20:37)
[2019-09-26] MEDS: RINGER'S SOLUTION,LACTATED 1,000 ML IV PRN ×3 (02:14→20:37)
[2019-09-26] MEDS: HYDROmorphone HCL 1 MG/ML DISP.SYRIN IV PRN ×2 (08:03→16:02)
[2019-09-26] MEDS: PANTOPRAZOLE SODIUM 40 MG in NORMAL SALINE 100 ML IV SCH (08:08)
[2019-09-26] MEDS: amLODIPine BESYLATE 5 MG TABLET PO SCH (08:29)
[2019-09-26] MEDS: METOPROLOL TARTRATE 25 MG TABLET PO SCH ×2 (08:29→16:06)
--- NOTE | 2019-09-26 09:53 | PN ---
Subjective - Date and Time Seen Date: 09/26/19 Time: 09:44 Subjective Narrative: He pulled out his NG tube in his sleep last night. It was reinserted. Film confirms position. He is having some sharp cramps will like he may have to move his bowels" Objective Objective Narrative: Currently he appears comfortable. He did have a dose of Dilaudid. The NG tube is clamped after his a.m. meds - Review of Systems Generalized/Overall Review: Reports: Fatigue - Did not sleep well. Denies: Chills, Fever EENTM: Reports: No Symptoms Reported Respiratory: Denies: Cough, Shortness of Breath Cardiac: Denies: Chest Pain, Palpitations Abdominal: Reports: Other - Intermittent crampy abdominal pain Genitourinary Symptoms: Reports: No Symptoms Reported Musculoskeletal Complaints: Reports: No Symptoms Reported Neurological: Reports: No Symptoms Reported Skin: Reports: No Symptoms Reported - Vitals Vitals: Last Vital Signs Temp 37.1 C 09/26/19 06:42 Pulse 76 09/26/19 08:29 Resp 20 09/26/19 06:42 BP 134/73 09/26/19 08:29 Pulse Ox 95 09/26/19 06:42 - Exam Constitutional: Present: Alert, Oriented x3, No distress ENT Exam: Present: normal ENT inspection, other - NG tube in good position Neck: Present: full range of motion, normal inspection Respiratory: Present: lungs clear Cardiovascular/Chest: Present: regular rate, rhythm Abdomen: Present: other /Rectal: Present: Exam deferred Extremity: Present: normal range of motion, normal inspection, no calf tenderness - A little more distended than last evening. Tympanitic but no percussion tenderness or discrete point tenderness. Very hypoactive bowel sounds Skin Exam: Present: normal color Neurologic: Present: cloth bleaching range tender II-XII nml as tested, no motor/sensory deficits Appearance: Present: appropriate appearance, appropriate insight, no memory impairment Eye contact: Present: cooperative, good eye contact, normal speech Thoughts: Present: normal thought pattern Assessment/Plan - Problems/Diagnosis (1) Acute appendicitis Problem: Acute Qualifiers: Acute appendicitis type: with generalized peritonitis Appendicitis gangrene presence: unspecified whether gangrene present Appendicitis perforation presence: unspecified whether perforation present Appendicitis abscess presence: unspecified whether abscess present Qualified Code(s): K35.20 - Acute appendicitis with generalized peritonitis, without abscess Narrative: Whether this represents an ileus or obstruction is still unclear. He does have to use MiraLAX and magnesium citrate at home. We will obtain a CT scan with Gastroview through the NG tube ADDENDUM 2:30 PM: CT shows contrast through to colon, so no obstruction. Will continue cycle clamp NG and check BMP (2) Hypertension Problem: Chronic Qualifiers: Hypertension type: essential hypertension Qualified Code(s): I10 - Essential (primary) hypertension Narrative: Currently vital signs are normal (3) Hyperlipidemia Problem: Acute Qualifiers: Hyperlipidemia type: unspecified Qualified Code(s): E78.5 - Hyperlipidemia, unspecified Narrative: No change
[2019-09-26] MEDS ORDERED: DIATRIZOATE MEGLUMINE, SODIUM 30 ML BTL PO ONE (11:00)
[2019-09-26 15:19] LABS: Anion Gap 7.6 mmol/L (6.8-13.8); BUN/Creatinine Ratio 15.2 (9.0-21.6); Calcium * 7.9 mg/dL (7.9-10.9); Estimated Creat Clear 62.9; Potassium 3.6 mmol/L (3.4-4.6)
[2019-09-27] MEDS: HYDROmorphone HCL 1 MG/ML DISP.SYRIN IV PRN ×2 (00:14→06:41)
[2019-09-27] MEDS: CEFOXITIN SODIUM 1 GM in DEXTROSE 5 % IN WATER 100 ML IV SCH ×8 (02:29→20:21)
[2019-09-27] MEDS: RINGER'S SOLUTION,LACTATED 1,000 ML IV PRN ×2 (06:34→16:05)
[2019-09-27] MEDS: ONDANSETRON HCL/PF 2 MG/ML VIAL IV PRN (06:51)
[2019-09-27] MEDS: PANTOPRAZOLE SODIUM 40 MG in NORMAL SALINE 100 ML IV SCH (08:25)
[2019-09-27] MEDS: amLODIPine BESYLATE 5 MG TABLET PO SCH (09:19)
[2019-09-27] MEDS: METOPROLOL TARTRATE 25 MG TABLET PO SCH ×2 (09:19→16:32)
--- NOTE | 2019-09-27 10:19 | PN ---
Subjective - Date and Time Seen Date: 09/27/19 Time: 10:15 Objective Objective Narrative: He has had several liquid bowel movements. He has some cramping abdominal discomfort. He had some desaturation last night while asleep but rested well. - Review of Systems Generalized/Overall Review: Denies: Chills, Fever EENTM: Reports: No Symptoms Reported Respiratory: Reports: Other - He coughs when he uses the [place] and the incentive spirometer. Denies: Shortness of Breath Cardiac: Denies: Chest Pain, Palpitations Abdominal: Reports: Other - Crampy abdominal pain just before bowel movements Genitourinary Symptoms: Reports: No Symptoms Reported Musculoskeletal Complaints: Reports: No Symptoms Reported Neurological: Reports: No Symptoms Reported Skin: Reports: No Symptoms Reported - Vitals Vitals: Last Vital Signs Temp 37 C 09/27/19 06:36 Pulse 78 09/27/19 09:19 Resp 18 09/27/19 06:36 BP 138/71 09/27/19 09:19 Pulse Ox 95 09/27/19 06:36 - Abnormal Lab Findings Abnormal Lab Findings: Abnormal Lab Results 09/26/19 Range/Units 14:59 Random Glucose 118 H (70-110) mg/dL - Exam Constitutional: Present: Alert, Oriented x3, Cooperative, Mild distress ENT Exam: Present: normal ENT inspection, other - NG in good position Neck: Present: normal inspection Respiratory: Present: lungs clear, no respiratory distress, other - Does have decreased volumes Cardiovascular/Chest: Present: regular rate, rhythm Abdomen: Present: other - He has active bowel sounds although he is still tympanitic and slightly distended Extremity: Present: normal range of motion, no pedal edema, no calf tenderness Skin Exam: Present: normal color Neurologic: Present: grocery cashier II-XII nml as tested, no motor/sensory deficits Appearance: Present: appropriate appearance, appropriate insight Eye contact: Present: cooperative, good eye contact, normal speech Thoughts: Present: normal thought pattern Assessment/Plan - Problems/Diagnosis (1) Acute appendicitis Problem: Acute Qualifiers: Acute appendicitis type: with generalized peritonitis Appendicitis gangrene presence: unspecified whether gangrene present Appendicitis perforation presence: unspecified whether perforation present Appendicitis abscess presence: unspecified whether abscess present Qualified Code(s): K35.20 - Acute appendicitis with generalized peritonitis, without abscess Narrative: He evidences return of bowel function. Will trial pain pill. Dose of Dulcolax today. Continue with clear liquids and intermittent clamping. We will have him shower and change dressings. Stressed importance of incentive spirometry and [place] (2) Hypertension Problem: Chronic Qualifiers: Hypertension type: essential hypertension Qualified Code(s): I10 - Essential (primary) hypertension Narrative: Stable (3) Hyperlipidemia Problem: Acute Qualifiers: Hyperlipidemia type: unspecified Qualified Code(s): E78.5 - Hyperlipidemia, unspecified Narrative: Stable
[2019-09-27] MEDS ORDERED: BISACODYL 5 MG TABLET.DR PO ONE (10:21)
[2019-09-27] MEDS: oxyCODONE HCL/ACETAMINOPHEN 1 TAB TABLET PO PRN ×3 (10:33→22:23)
[2019-09-28] MEDS: RINGER'S SOLUTION,LACTATED 1,000 ML IV PRN (01:55)
[2019-09-28] MEDS: CEFOXITIN SODIUM 1 GM in DEXTROSE 5 % IN WATER 100 ML IV SCH ×8 (03:05→20:45)
--- NOTE | 2019-09-28 08:18 | PN ---
Subjective - Date and Time Seen Date: 09/28/19 Time: 08:15 Subjective Narrative: He had a laparoscopic appendectomy for severe acute appendicitis and generalized peritonitis on 09/22/2019. Objective Objective Narrative: He has had multiple loose stools and passed lots of gas. Hiccups but no vomiting - Review of Systems Generalized/Overall Review: Denies: Chills, Fever EENTM: Reports: No Symptoms Reported Respiratory: Denies: Cough, Shortness of Breath Cardiac: Denies: Chest Pain, Palpitations Abdominal: Reports: Other - Much less crampy abdominal pain Genitourinary Symptoms: Reports: No Symptoms Reported Musculoskeletal Complaints: Reports: No Symptoms Reported Neurological: Reports: No Symptoms Reported Skin: Reports: No Symptoms Reported - Vitals Vitals: Last Vital Signs Temp 37.0 C 09/28/19 07:00 Pulse 76 09/28/19 07:00 Resp 20 09/28/19 07:00 BP 136/70 09/28/19 07:00 Pulse Ox 99 09/28/19 07:00 - Exam Constitutional: Present: Alert, Oriented x3, Cooperative, No distress ENT Exam: Present: normal ENT inspection Neck: Present: full range of motion, normal inspection Respiratory: Present: no respiratory distress Cardiovascular/Chest: Present: regular rate, rhythm Abdomen: Present: other - He showered and the dressings were changed, no problems with the incisions /Rectal: Present: Exam deferred Extremity: Present: normal range of motion, no pedal edema, no calf tenderness Skin Exam: Present: normal color Neurologic: Present: chemical processing technician II-XII nml as tested, no motor/sensory deficits Appearance: Present: appropriate appearance, appropriate insight Eye contact: Present: cooperative, good eye contact, normal speech Thoughts: Present: normal thought pattern Assessment/Plan - Problems/Diagnosis (1) Acute appendicitis Problem: Acute Qualifiers: Acute appendicitis type: with generalized peritonitis Appendicitis gangrene presence: unspecified whether gangrene present Appendicitis perforation presence: unspecified whether perforation present Appendicitis abscess presence: unspecified whether abscess present Qualified Code(s): K35.20 - Acute appendicitis with generalized peritonitis, without abscess Narrative: Will clamp his NG tube and plan to remove later today if tolerated. Saline lock IV ADDENDUM 6PM: He has tolerated full liquids and had another liquid stool and passed a lot of gas (2) Hypertension Problem: Chronic Qualifiers: Hypertension type: essential hypertension Qualified Code(s): I10 - Essential (primary) hypertension Narrative: Blood pressure normal (3) Hyperlipidemia Problem: Acute Qualifiers: Hyperlipidemia type: unspecified Qualified Code(s): E78.5 - Hyperlipidemia, unspecified
[2019-09-28] MEDS: PANTOPRAZOLE SODIUM 40 MG in NORMAL SALINE 100 ML IV SCH (09:41)
[2019-09-28] MEDS: amLODIPine BESYLATE 5 MG TABLET PO SCH (09:42)
[2019-09-28] MEDS: METOPROLOL TARTRATE 25 MG TABLET PO SCH ×2 (09:42→17:59)
[2019-09-29] MEDS: ONDANSETRON HCL/PF 2 MG/ML VIAL IV PRN ×2 (02:34→11:30)
[2019-09-29] MEDS: CEFOXITIN SODIUM 1 GM in DEXTROSE 5 % IN WATER 100 ML IV SCH ×2 (02:34)
[2019-09-29] MEDS: oxyCODONE HCL/ACETAMINOPHEN 1 TAB TABLET PO PRN ×2 (02:34→11:29)
--- NOTE | 2019-09-29 08:34 | PN ---
Subjective - Date and Time Seen Date: 09/29/19 Time: 08:29 Subjective Narrative: He had a laparoscopic appendectomy for severe acute appendicitis and generalized peritonitis on 09/22/2019. He required an NG tube for slow return of GI function/ileus. Objective Objective Narrative: He had some crampy lower abdominal pain last night and a "blowout" bowel movement. He has tolerated full liquids. Vital signs have remained normal His hiccups from yesterday have resolved - Review of Systems Generalized/Overall Review: Denies: Chills, Fever EENTM: Reports: No Symptoms Reported Respiratory: Denies: Cough, Shortness of Breath Cardiac: Denies: Chest Pain, Palpitations Abdominal: Reports: Other - Currently he denies abdominal pain Genitourinary Symptoms: Reports: No Symptoms Reported Musculoskeletal Complaints: Reports: No Symptoms Reported Neurological: Reports: No Symptoms Reported Skin: Reports: No Symptoms Reported - Vitals Vitals: Last Vital Signs Temp 36.0 C 09/29/19 07:45 Pulse 69 09/29/19 07:45 Resp 20 09/29/19 07:45 BP 122/69 09/29/19 07:45 Pulse Ox 93 09/29/19 07:45 - Exam Constitutional: Present: Alert, Oriented x3, Cooperative, Well developed, No distress ENT Exam: Present: normal ENT inspection Neck: Present: normal inspection Respiratory: Present: no respiratory distress Cardiovascular/Chest: Present: regular rate, rhythm Abdomen: Present: other - Abdomen is protuberant. He is tympanitic but no percussion tenderness. No direct tenderness or rebound. /Rectal: Present: Exam deferred Extremity: Present: normal range of motion, no pedal edema, no calf tenderness Skin Exam: Present: normal color Neurologic: Present: blood bank technologist II-XII nml as tested, no motor/sensory deficits Appearance: Present: appropriate appearance, appropriate insight, neat, no memory impairment Eye contact: Present: cooperative, good eye contact, normal speech Thoughts: Present: normal thought pattern Assessment/Plan - Problems/Diagnosis (1) Acute appendicitis Problem: Acute Qualifiers: Acute appendicitis type: with generalized peritonitis Appendicitis gangrene presence: unspecified whether gangrene present Appendicitis perforation presence: unspecified whether perforation present Appendicitis abscess presence: unspecified whether abscess present Qualified Code(s): K35.20 - Acute appendicitis with generalized peritonitis, without abscess Narrative: Will advance his diet today. Encourage ambulation and pulmonary toilet. Will discontinue IV antibiotics He has had more loose stools, will check c diff as could be antibiotic associated diarrhea (2) Hypertension Problem: Chronic Qualifiers: Hypertension type: essential hypertension Qualified Code(s): I10 - Essential (primary) hypertension Narrative: Stable (3) Hyperlipidemia Problem: Acute Qualifiers: Hyperlipidemia type: unspecified Qualified Code(s): E78.5 - Hyperlipidemia, unspecified Narrative: Stable
[2019-09-29] MEDS: amLODIPine BESYLATE 5 MG TABLET PO SCH (09:08)
[2019-09-29] MEDS: METOPROLOL TARTRATE 25 MG TABLET PO SCH ×2 (09:08→16:45)
[2019-09-29] MEDS: PANTOPRAZOLE SODIUM 40 MG in NORMAL SALINE 100 ML IV SCH (09:08)
[2019-09-29] MEDS: METOCLOPRAMIDE HCL 5 MG/ML VIAL IV PRN (11:48)
[2019-09-30] MEDS: oxyCODONE HCL/ACETAMINOPHEN 1 TAB TABLET PO PRN (03:13)
[2019-09-30] MEDS: amLODIPine BESYLATE 5 MG TABLET PO SCH (09:50)
[2019-09-30] MEDS: PANTOPRAZOLE SODIUM 40 MG in NORMAL SALINE 100 ML IV SCH (09:50)
[2019-09-30] MEDS: METOPROLOL TARTRATE 25 MG TABLET PO SCH ×2 (09:50→16:06)
[2019-09-30] MEDS: METOCLOPRAMIDE HCL 5 MG/ML VIAL IV PRN (12:16)
--- NOTE | 2019-09-30 18:51 | PN ---
Subjective - Date and Time Seen Date: 09/30/19 Time: 18:45 - Second visit Subjective Narrative: He had a laparoscopic appendectomy 10/23/2018 for severe acute appendicitis. Postoperatively he has not had complete return of bowel function and x-ray today shows increased small bowel loops compatible with a high-grade partial obstruction Objective - Review of Systems Generalized/Overall Review: Reports: Weakness. Denies: Chills, Fever EENTM: Reports: No Symptoms Reported Respiratory: Denies: Cough, Shortness of Breath Cardiac: Denies: Chest Pain, Edema, Palpitations Abdominal: Reports: Other - He continues to have crampy abdominal pain with nausea. He continues to have loose bowel movements. C. difficile was negative Genitourinary Symptoms: Reports: No Symptoms Reported Musculoskeletal Complaints: Reports: No Symptoms Reported Neurological: Reports: No Symptoms Reported Skin: Reports: No Symptoms Reported - Vitals Vitals: Last Vital Signs Temp 36.7 C 09/30/19 14:56 Pulse 88 09/30/19 16:06 Resp 26 H 09/30/19 14:56 BP 129/69 09/30/19 16:06 Pulse Ox 92 L 09/30/19 14:56 - EKG/Xray Findings XRAY: abdomen - Shows dilated loops of small bowel compatible with small bowel obstruction - Exam Constitutional: Present: Alert, Oriented x3, Cooperative, Well developed, Mild distress ENT Exam: Present: normal ENT inspection Neck: Present: full range of motion, normal inspection Respiratory: Present: no respiratory distress Cardiovascular/Chest: Present: regular rate, rhythm Abdomen: Present: other - He continues to be distended with tympany to percussion but no percussion tenderness or discrete point tenderness. No rebound /Rectal: Present: Exam deferred Extremity: Present: normal range of motion, no pedal edema, no calf tenderness Skin Exam: Present: normal color Neurologic: Present: united states attorney II-XII nml as tested, no motor/sensory deficits Appearance: Present: appropriate appearance, appropriate insight, neat, no memory impairment Eye contact: Present: cooperative, good eye contact, normal speech Thoughts: Present: normal thought pattern Assessment/Plan - Problems/Diagnosis (1) Acute appendicitis Problem: Acute Qualifiers: Acute appendicitis type: with generalized peritonitis Appendicitis gangrene presence: unspecified whether gangrene present Appendicitis perforation presence: unspecified whether perforation present Appendicitis abscess presence: unspecified whether abscess present Qualified Code(s): K35.20 - Acute appendicitis with generalized peritonitis, without abscess Narrative: He appears to have an ongoing high-grade small bowel obstruction most likely due to adhesions in the terminal ileum near where the appendix was removed. Whether this is due to the initial inflammation or possibly due to the operative intervention is unknown. Diagrammed the situation and reviewed the x-rays with him and his . Explained that an exploratory laparotomy for release of the adhesions would be advisable given the length of time since his initial operation. The risks and possible complications of the surgery were outlined. After interactive discussion their questions were answered to their apparent satisfaction and he has given verbal informed consent for exploratory laparotomy for release of the small bowel obstruction. We will plan to do this tomorrow. (2) Hypertension Problem: Chronic Qualifiers: Hypertension type: essential hypertension Qualified Code(s): I10 - E ssential (primary) hypertension (3) Hyperlipidemia Problem: Acute Qualifiers: Hyperlipidemia type: unspecified Qualified Code(s): E78.5 - Hyperlipidemia, unspecified
[2019-10-01] MEDS: oxyCODONE HCL/ACETAMINOPHEN 1 TAB TABLET PO PRN (02:58)
[2019-10-01] MEDS: METOPROLOL TARTRATE 25 MG TABLET PO SCH ×2 (07:30→08:04)
[2019-10-01] MEDS: amLODIPine BESYLATE 5 MG TABLET PO SCH ×2 (07:30→08:04)
[2019-10-01] MEDS: PANTOPRAZOLE SODIUM 40 MG in NORMAL SALINE 100 ML IV SCH ×2 (07:31→08:04)
[2019-10-01] MEDS ORDERED: ceFAZolin SODIUM 1 GM VIAL IV PRN (12:23)
[2019-10-01] MEDS: RINGER'S SOLUTION,LACTATED 1,000 ML IV PRN ×3 (12:32→16:18)
[2019-10-01] MEDS ORDERED: NALOXONE HCL 1 MG/1 ML SYRG IV PRN (12:33)
--- NOTE | 2019-10-01 12:39 | ANES ---
Anesthesia Pre Procedure Eval Vitals/Labs: Last Vital Signs Temp 36.7 C 10/01/19 10:45 Pulse 60 10/01/19 10:45 Resp 16 10/01/19 10:45 BP 124/62 10/01/19 10:45 Pulse Ox 95 10/01/19 10:45 HOME MEDICATIONS Aspirin [Aspirin Chewable] 81 mg PO DAILY 04/09/16 [Last Taken 09/22/19] Metoprolol Tartrate [Lopressor] 25 mg PO BID 04/09/16 [Last Taken 09/22/19] Simvastatin [Zocor] 40 mg PO HS 04/09/16 [Last Taken 09/21/19] amLODIPine BESYLATE [Norvasc] 5 mg PO DAILY 09/22/19 [Last Taken 09/22/19] Allergies/Adverse Reactions: Allergies Allergy/AdvReac Type Severity Reaction Status Date / Time No Known Allergies Allergy Verified 04/12/16 14:02 - Planned Procedure Planned Procedure: Exp laparoscopy Medication List Reviewed:: Yes Allergies Verified: Yes Medical History (Last Reviewed 10/01/19 @ 12:37 by Keith Ivey CRNA) HLD (hyperlipidemia) HTN (hypertension) CAD (coronary artery disease) Onset Date: Unknown Surgical History (Last Reviewed 10/01/19 @ 12:37 by Keith Ivey CRNA) History of surgery on left wrist Onset Date: 04/09/16 [place]-ORIF L radius-fx 4 fragments w/intra-articular extension History of colonoscopy Onset Date: ~2010 Dr Soto-3 polyps History of laparoscopic appendectomy Onset Date: 09/22/19 [place] History of carpal tunnel release Onset Date: 04/09/16 [place]-left open History of cholecystectomy Onset Date: Unknown History of elbow surgery Onset Date: ~11/2016 [place]-excision of calcified mass History of heart artery stent Onset Date: Unknown History of nasal surgery Onset Date: Unknown for fx Family History (Last Reviewed 10/01/19 @ 12:37 by Keith Ivey CRNA) Mother , age 83-colon ca Cancer colon Father , age 72-aortic aneurysm No problems noted. Brother , 1 as infant-spinal meningitis 1-neck fracture No problems noted. Sister , 1 age 1 yr 1 w/breast ca Alive and well 4 sisters Cancer 1 sister-breast ca - Family Anesthesia History Family History:: no untoward family reactions to anesthesia, no familial bleeding tendencies, no family history of clotting disorders, no family history of premature - Airway/Neck/Teeth Within Normal Limits:: Yes Teeth Condition: intact Denture Type: Partial upper, Partial lower Mallampatti Score: 3 Thyromental (T-M) distance: > 6 cm Mandibulo Hyoid distance: > 3 cm - Respiratory Respiratory Physical: lungs clear Smoking Status: Former smoker Discussed smoking cessation including day of surgery: No Sleep Apnea currently treated: No Sleep Apnea by current assessment: No Discussed Risks/Treatment of MACI: No - Cardiovascular Tolerate Activity: Fair Heart Sounds: S1 & S2, Regular - Anesthesia Assessment and Plan ASA Class: PS, III, E Anesthesia Type Plan: General ET, Epidural - Epidural for postop analgesia
[2019-10-01] MEDS: ROPIVACAINE HCL/PF 250 MG, fentaNYL CITRATE/PF 250 MCG in NORMAL SALINE 220 ML EP SCH (14:37)
[2019-10-01] MEDS ORDERED: MUPIROCIN 22 APPL TUBE TP ONE (15:00)
--- NOTE | 2019-10-01 15:32 | ANES ---
Post Anesthesia Assessment - Vital Signs Vitals: Last Vital Signs Temp 36.1 C 10/01/19 15:30 Pulse 72 10/01/19 15:30 Resp 16 10/01/19 15:30 BP 123/60 10/01/19 15:30 Pulse Ox 100 10/01/19 15:30 Airway Patency: Normal - Mental Status Level Of Consciousness: Awake - Pain Level Pain Score: 0 - N/V Assessment Nausea/Vomiting Presence: None Dehydration:: No
--- NOTE | 2019-10-01 15:32 | ANES ---
Post Anesthesia Discharge - Transfer of Care Transfer of Care handoff given to nurse: Yes - Discharge from PACU Discharge from PACU when meets criteria: Yes - Discharge to ASU Discharge to ASU-no complications/pt stable: Yes
--- NOTE | 2019-10-01 15:37 | ANES ---
Anesthesia Procedure Note Procedure Note: ANESTHESIA PROCEDURE NOTE Date of Procedure: 10/01/2019. Time of procedure: 1245. Performed by: Keith vIey CRNA Fre[employer] H[employer]ler: None. Preprocedure diagnosis: Small bowel obstruction. Post procedure diagnosis: Same. Procedure: Insertion of thoracic epidural for postoperative analgesia. Indications: The patient is a 79-year-old male, requesting thoracic epidural for postoperative analgesia related to exploratory laparotomy. Findings: See below. Details of the procedure: The patient was brought back to operating room #4 and placed in a sitting position. DuraPrep as well as Betadine swabs X3 was applied to the patient's back. Patient was then draped in a sterile fashion. Lidocaine 1% was infiltrated to the skin and subcutaneous tissues at the level of the T10- 11 interspace. The epidural space was identified using a 18-gauge Tuohy needle with [id number] technique. The epidural catheter was inserted to a depth of 10 centimeters from the skin. Negative test dose was elicited using 3 mL of 1.5% preservative-free lidocaine plus epinephrine 1 200,000. The epidural catheter was then taped and secured in place. EBL: Minimal. Fluids: N/A. Specimen: N/A. Post procedure condition: The patient tolerated the procedure well. No complications were noted. Thank you for this consultation. Keith Ivey CRNA
--- NOTE | 2019-10-01 17:43 | OR ---
Operative Report - Dictated Report Narrative: OPERATIVE REPORT DATE OF OPERATION: 10/01/2019 PREOPERATIVE DIAGNOSIS: Small bowel obstruction POSTOPERATIVE DIAGNOSIS: Small bowel obstruction due to inflammatory adhesions of the terminal ileum in the right pelvis OPERATION: Exploratory laparotomy with lysis of adhesions and release of small bowel obstruction SURGEON: Alaina Johnson MD ANESTHESIA: General endotracheal/epidural Keith Ivey CRNA INDICATIONS FOR PROCEDURE: The patient is an 79-year-old male who underwent laparoscopic appendectomy for severe acute appendicitis on 10/23/2018. Postoperatively he has developed nominal distention which persist despite trial of NG suction. X-rays reveal findings compatible with distal small bowel obstruction versus ileus. FINDINGS: Small bowel obstruction due to inflammatory adhesions involving the ileum in the right side of the pelvis. Incidental Meckel's diverticulum NARRATIVE OF PROCEDURE: The patient was identified preoperatively and prior to the administration of anesthetic a multidisciplinary timeout was observed. After placement of an epidural catheter, the patient was placed supine SCDs were applied and IV Ancef administered. General endotracheal anesthetic was administered. A nasogastric tube and Chavez catheter were placed. The sutures from the patient's previous laparoscopic appendectomy were removed and all traces of Band-Aid adhesive removed. The patient's abdomen was then prepped with Betadine solution and the midline outlined with 4 sterile towels. The remainder of the patient was covered with a sterile disposable drape. An impervious plastic dressing was also applied. A lower right paramedian skin incision was made and dissection carried through subcutaneous tissue with electrocautery until the rectus sheath was encountered. This was incised. The rectus muscle was split longitudinally to expose the posterior rectus sheath/peritoneum. These were elevated and incised to allow entry into the abdomen under direct vision. Digital palpation of the undersurface of the anterior abdominal wall revealed no local adhesions. The small bowel initially visualized was dilated but normal in appearance. The dilated bowel was traced distally. A noninflamed Meckel's diverticulum was identified. The terminal ileum then dove into the right pelvis and was densely adherent to the right pelvic sidewall. A Bookwalter self-retaining retractor was placed. The tethered/adherent terminal ileum was gradually developed distally by lysing inflammatory adhesions until a short stretch of relatively normal-appearing terminal ileum was identified entering the cecum. The previous appendectomy area appeared hemostatic and the stump of the appendix was seen to be gas and liquid tight. The 25 cm liberated stretch of small intestine appeared viable and gas and liquid tight. At this juncture small bowel content could be freely stripped through the liberated ileum and into the cecum. The small bowel was then returned to an anatomic position. The pelvis was suctioned clean. After receiving a correct sponge needle and instrument count attention was turned to closing the abdomen. The posterior rectus sheath/peritoneum were approximated with a running suture of 1 PDS. The rectus muscle was reapproximated with a running suture of 3-0 chromic. The anterior rectus sheath was approximated with a running suture of 1 PDS. Subcutaneous space was obliterated with interrupted sutures of 2-0 chromic. The skin was closed with nazanin. The operative site was washed and dried. And dressing of Bactroban ointment Mepilex border and Medipore tape was applied. The operative procedure was terminated at this point. The patient tolerated the anesthetic and procedure well without complication. There was no measurable blood loss. No specimens were submitted. The patient was transferred to the recovery room awake, extubated, and in stable condition. Reviewed and electronically signed
[2019-10-01] MEDS: diphenhydrAMINE HCL 50 MG/ML VIAL IV PRN (20:27)
[2019-10-02] MEDS: RINGER'S SOLUTION,LACTATED 1,000 ML IV PRN ×4 (00:20→23:12)
--- NOTE | 2019-10-02 08:41 | PN ---
Subjective - Date and Time Seen Date: 10/02/19 Time: 08:38 Subjective Narrative: POD #1 exploratory laparotomy with lysis of adhesions Very little NG output last night. He did have a liquid bowel movement. Good SaO2. He is having incisional discomfort. Up in chair. Pulse is increased Objective - Review of Systems Generalized/Overall Review: Denies: Chills, Fever EENTM: Reports: No Symptoms Reported Respiratory: Denies: Cough, Shortness of Breath Cardiac: Denies: Chest Pain, Palpitations Abdominal: Reports: Other - Incisional discomfort Genitourinary Symptoms: Reports: Other - Chavez catheter is uncomfortable Musculoskeletal Complaints: Reports: No Symptoms Reported Neurological: Reports: No Symptoms Reported Skin: Reports: No Symptoms Reported - Vitals Vitals: Last Vital Signs Temp 37.0 C 10/02/19 07:59 Pulse 113 H 10/02/19 07:59 Resp 16 10/02/19 07:59 BP 132/87 10/02/19 07:59 Pulse Ox 97 10/02/19 07:59 - Exam Constitutional: Present: Alert, Oriented x3, Cooperative, Mild distress ENT Exam: Present: normal ENT inspection, other - NG in good position Neck: Present: normal inspection Respiratory: Present: no respiratory distress Cardiovascular/Chest: Present: regular rate, rhythm Abdomen: Present: other - Dressings dry. Not as much distention as before /Rectal: Present: Exam deferred Extremity: Present: normal range of motion Skin Exam: Present: normal color Neurologic: Present: component technician II-XII nml as tested, no motor/sensory deficits Appearance: Present: appropriate appearance, appropriate insight, neat, no memory impairment Eye contact: Present: cooperative, good eye contact, normal speech Thoughts: Present: normal thought pattern Assessment/Plan Plan Narrative: Will clamp NG tube and restart metoprolol and Norvasc. Sips of liquids. Encourage out of bed. Work on analgesia. Stress pulmonary toilet - Problems/Diagnosis (1) Acute appendicitis Problem: Acute Qualifiers: Acute appendicitis type: with generalized peritonitis Appendicitis gangrene presence: unspecified whether gangrene present Appendicitis perforation presence: unspecified whether perforation present Appendicitis abscess presence: unspecified whether abscess present Qualified Code(s): K35.20 - Acute appendicitis with generalized peritonitis, without abscess (2) Hypertension Problem: Chronic Qualifiers: Hypertension type: essential hypertension Qualified Code(s): I10 - Essential (primary) hypertension Narrative: Restart antihypertensives (3) Hyperlipidemia Problem: Acute Qualifiers: Hyperlipidemia type: unspecified Qualified Code(s): E78.5 - Hyperlipidemia, unspecified
[2019-10-02] MEDS: amLODIPine BESYLATE 5 MG TABLET PO SCH (09:07)
[2019-10-02] MEDS: METOPROLOL TARTRATE 25 MG TABLET PO SCH ×2 (09:07→21:21)
[2019-10-02] MEDS: PANTOPRAZOLE SODIUM 40 MG in NORMAL SALINE 100 ML IV SCH (09:07)
--- NOTE | 2019-10-02 10:18 | PN ---
Subjective - Date and Time Seen Date: 10/02/19 Time: 10:16 Subjective Narrative: Patient denies complications related to thoracic epidural. Pain is well controlled. Objective - Vitals Vitals: Last Vital Signs Temp 37.0 C 10/02/19 07:59 Pulse 113 H 10/02/19 09:07 Resp 16 10/02/19 07:59 BP 132/87 10/02/19 09:07 Pulse Ox 97 10/02/19 07:59 - Exam Constitutional: Present: Alert, Oriented x3, Cooperative, No distress Assessment/Plan Plan Narrative: Continue thoracic pain epidural at current settings.
[2019-10-02] MEDS: diphenhydrAMINE HCL 50 MG/ML VIAL IV PRN (21:22)
[2019-10-03] MEDS: ROPIVACAINE HCL/PF 250 MG, fentaNYL CITRATE/PF 250 MCG in NORMAL SALINE 220 ML EP SCH ×2 (00:02→22:41)
[2019-10-03] MEDS: RINGER'S SOLUTION,LACTATED 1,000 ML IV PRN (07:16)
[2019-10-03] MEDS: PANTOPRAZOLE SODIUM 40 MG in NORMAL SALINE 100 ML IV SCH (08:24)
[2019-10-03] MEDS: METOPROLOL TARTRATE 25 MG TABLET PO SCH ×2 (08:24→20:35)
[2019-10-03] MEDS: amLODIPine BESYLATE 5 MG TABLET PO SCH (08:24)
[2019-10-03] MEDS: diphenhydrAMINE HCL 50 MG/ML VIAL IV PRN ×2 (13:51→20:30)
--- NOTE | 2019-10-03 18:45 | PN ---
Subjective - Date and Time Seen Date: 10/03/19 Time: 18:39 Subjective Narrative: POD #2 exploratory laparotomy with lysis of adhesions NG fell out last night. He did have a bowel movement and is passing "lots" of gas. Good SaO2. He is having very little incisional discomfort. Up in chair. tolerated clear liquids except broth. Objective - Review of Systems Generalized/Overall Review: Reports: Fatigue. Denies: Chills, Fever EENTM: Reports: No Symptoms Reported Respiratory: Reports: Other - using spirometry. Denies: Cough, Shortness of Breath Abdominal: Reports: Other - pain controlled, no nausea Genitourinary Symptoms: Reports: No Symptoms Reported, Other - voided without corona Musculoskeletal Complaints: Reports: No Symptoms Reported Neurological: Reports: No Symptoms Reported Skin: Reports: No Symptoms Reported - Vitals Vitals: Last Vital Signs Temp 36.7 C 10/03/19 13:45 Pulse 77 10/03/19 13:45 Resp 22 H 10/03/19 13:45 BP 139/68 10/03/19 13:45 Pulse Ox 100 10/03/19 13:45 - Exam Exam Narrative: sleeping on rounds tonight---exam is from earlier visit Constitutional: Present: No distress ENT Exam: Present: normal ENT inspection Neck: Present: normal inspection Respiratory: Present: no respiratory distress Cardiovascular/Chest: Present: regular rate, rhythm Abdomen: Present: other - a little more distended but soft and no tenderness /Rectal: Present: Exam deferred Extremity: Present: normal range of motion, normal inspection, no calf tenderness Skin Exam: Present: normal color Neurologic: Present: health information provider II-XII nml as tested, no motor/sensory deficits Appearance: Present: appropriate appearance, appropriate insight, no memory impairment Eye contact: Present: cooperative, good eye contact, normal speech Thoughts: Present: normal thought pattern Cauti Physician Documentation - Urinary Catheter Management Urethral (Corona) Date of Removal: 10/02/19 Time of Removal: 14:40 Assessment/Plan - Problems/Diagnosis (1) Acute appendicitis Problem: Acute Qualifiers: Acute appendicitis type: with generalized peritonitis Appendicitis gangrene presence: unspecified whether gangrene present Appendicitis perforation presence: unspecified whether perforation present Appendicitis abscess presence: unspecified whether abscess present Qualified Code(s): K35.20 - Acute appendicitis with generalized peritonitis, without abscess Narrative: Encouraged to be OOB and use spiromety/coronet. Will try to let him get a period of uninterrupted sleep. Diet as able (2) Hypertension Problem: Chronic Qualifiers: Hypertension type: essential hypertension Qualified Code(s): I10 - Essential (primary) hypertension (3) Hyperlipidemia Problem: Acute Qualifiers: Hyperlipidemia type: unspecified Qualified Code(s): E78.5 - Hyperlipidemia, unspecified
[2019-10-04] MEDS: PANTOPRAZOLE SODIUM 40 MG in NORMAL SALINE 100 ML IV SCH (09:59)
[2019-10-04] MEDS: amLODIPine BESYLATE 5 MG TABLET PO SCH (10:01)
[2019-10-04] MEDS: METOPROLOL TARTRATE 25 MG TABLET PO SCH ×2 (10:01→21:22)
[2019-10-04] MEDS ORDERED: BISACODYL 5 MG TABLET.DR PO ONE (10:18)
--- NOTE | 2019-10-04 10:45 | PN ---
Subjective - Date and Time Seen Date: 10/04/19 Time: 10:41 Subjective Narrative: POD #3 exploratory laparotomy with lysis of adhesions Good SaO2. He is having very little incisional discomfort. Did get sleep last night. tolerated full liquids. No N/V. Objective - Review of Systems Generalized/Overall Review: Denies: Chills, Fever EENTM: Reports: No Symptoms Reported Respiratory: Denies: Cough, Shortness of Breath Cardiac: Denies: Chest Pain, Palpitations Abdominal: Reports: Other - incisional pain controlled. No cramping or nausea Genitourinary Symptoms: Reports: No Symptoms Reported, Other - voiding without problem Neurological: Reports: No Symptoms Reported Skin: Reports: No Symptoms Reported - Vitals Vitals: Last Vital Signs Temp 37.1 C 10/04/19 07:00 Pulse 70 10/04/19 10:01 Resp 20 10/04/19 09:58 BP 139/71 10/04/19 10:01 Pulse Ox 99 10/04/19 09:58 - Exam Constitutional: Present: Alert, Oriented x3, Cooperative, No distress ENT Exam: Present: normal ENT inspection Neck: Present: normal inspection Respiratory: Present: no respiratory distress Cardiovascular/Chest: Present: regular rate, rhythm Abdomen: Present: other - slightly distended and tympanitic, but soft /Rectal: Present: Exam deferred Extremity: Present: normal inspection, no calf tenderness Skin Exam: Present: normal color Neurologic: Present: healthcare representative II-XII nml as tested, no motor/sensory deficits Appearance: Present: appropriate appearance, appropriate insight, neat, no memor y impairment Eye contact: Present: cooperative, good eye contact, normal speech Thoughts: Present: normal thought pattern Cauti Physician Documentation - Urinary Catheter Management Urethral (Chavez) Date of Removal: 10/02/19 Time of Removal: 14:40 Assessment/Plan - Problems/Diagnosis (1) Acute appendicitis Problem: Acute Qualifiers: Acute appendicitis type: with generalized peritonitis Appendicitis gangrene presence: unspecified whether gangrene present Appendicitis perforation presen ce: unspecified whether perforation present Appendicitis abscess presence: unspecified whether abscess present Qualified Code(s): K35.20 - Acute appendicitis with generalized peritonitis, without abscess Narrative: will advance diet. encourage ambulation and pulmonary toilet. Percocet in anticipation of D/C epidural (2) Hypertension Problem: Chronic Qualifiers: Hypertension type: essential hypertension Qualified Code(s): I10 - Essential (primary) hypertension (3) Hyperlipidemia Problem: Acute Qualifiers: Hyperlipidemia type: unspecified Qualified Code(s): E78.5 - Hyperlipidemia, unspecified
[2019-10-04] MEDS: oxyCODONE HCL/ACETAMINOPHEN 1 TAB TABLET PO PRN ×2 (15:21→19:27)
[2019-10-04] MEDS: diphenhydrAMINE HCL 50 MG/ML VIAL IV PRN (21:22)
[2019-10-05] MEDS: oxyCODONE HCL/ACETAMINOPHEN 1 TAB TABLET PO PRN ×5 (00:32→18:43)
[2019-10-05] MEDS ORDERED: BISACODYL 5 MG TABLET.DR PO ONE (08:48)
[2019-10-05] MEDS: amLODIPine BESYLATE 5 MG TABLET PO SCH (09:14)
[2019-10-05] MEDS: METOPROLOL TARTRATE 25 MG TABLET PO SCH ×2 (09:14→20:27)
[2019-10-05] MEDS: PANTOPRAZOLE SODIUM 40 MG in NORMAL SALINE 100 ML IV SCH (09:18)
--- NOTE | 2019-10-05 13:20 | PN ---
Subjective - Date and Time Seen Date: 10/05/19 Time: 13:17 Subjective Narrative: POD #4 exploratory laparotomy with lysis of adhesions Good SaO2. Incisional discomfort controlled with Percocet. Did get sleep last night. tolerated advanced diet--small amounts. No N/V. Objective - Review of Systems Generalized/Overall Review: Reports: Fatigue. Denies: Chills, Fever EENTM: Reports: No Symptoms Reported Respiratory: Denies: Cough, Shortness of Breath Cardiac: Denies: Chest Pain, Palpitations Abdominal: Reports: Other - no BM today but lots of rumbling Genitourinary Symptoms: Reports: Frequency. Denies: Burning, Urgency Musculoskeletal Complaints: Reports: No Symptoms Reported Neurological: Reports: No Symptoms Reported Skin: Reports: No Symptoms Reported - Vitals Vitals: Last Vital Signs Temp 36.3 C 10/05/19 10:58 Pulse 65 10/05/19 10:58 Resp 16 10/05/19 10:58 BP 114/65 10/05/19 10:58 Pulse Ox 93 10/05/19 10:58 - Exam Constitutional: Present: Alert, Oriented x3, Cooperative, No distress ENT Exam: Present: normal ENT inspection Neck: Present: normal inspection Respiratory: Present: no respiratory distress Cardiovascular/Chest: Present: regular rate, rhythm Abdomen: Present: other - A little distended, but soft. Very active BS, dressing dry Extremity: Present: normal range of motion, normal inspection, no calf tenderne ss Skin Exam: Present: normal color Neurologic: Present: medical lab technician II-XII nml as tested, no motor/sensory deficits Appearance: Present: appropriate appearance, appropriate insight, no memory impairment Eye contact: Present: cooperative, good eye contact, normal speech Thoughts: Present: normal thought pattern Cauti Physician Documentation - Urinary Catheter Management Urethral (Chavez) Date of Removal: 10/02/19 Time of Removal: 14:40 Assessment/Plan Plan Narrative: He continues to show improvement. Will stress OOB and pulmonary toilet. - Problems/Diagnosis (1) Acute appendicitis Problem: Acute Qualifiers: Acute appendicitis type: with generalized peritonitis Appendicitis gangrene presence: unspecified whether gangrene present Appendicitis perforation presence: unspecified whether perforation present Appendicitis abscess presence: unspecified whether abscess present Qualified Code(s): K35.20 - Acute appendicitis with generalized peritonitis, without abscess (2) Hypertension Problem: Chronic Qualifiers: Hypertension type: essential hypertension Qualified Code(s): I10 - Essential (primary) hypertension (3) Hyperlipidemia Problem: Acute Qualifiers: Hyperlipidemia type: unspecified Qualified Code(s): E78.5 - Hyperlipidemia, unspecified
[2019-10-05] MEDS: diphenhydrAMINE HCL 50 MG/ML VIAL IV PRN (21:35)
[2019-10-06] MEDS: oxyCODONE HCL/ACETAMINOPHEN 1 TAB TABLET PO PRN (03:21)
[2019-10-06] MEDS ORDERED: BISACODYL 10 MG SUPP.RECT RC ONE (08:11)
[2019-10-06] MEDS ORDERED: BISACODYL 5 MG TABLET.DR PO ONE (08:11)
[2019-10-06] MEDS: PANTOPRAZOLE SODIUM 40 MG in NORMAL SALINE 100 ML IV SCH (08:28)
[2019-10-06] MEDS: amLODIPine BESYLATE 5 MG TABLET PO SCH (08:30)
[2019-10-06] MEDS: METOPROLOL TARTRATE 25 MG TABLET PO SCH ×2 (08:30→20:19)
[2019-10-06] MEDS ORDERED: ACETAMINOPHEN 325 MG TABLET PO PRN (18:43)
--- NOTE | 2019-10-06 18:43 | PN ---
Subjective - Date and Time Seen Date: 10/06/19 Time: 18:39 - Second visit Subjective Narrative: POD #5 exploratory laparotomy with lysis of adhesions Good SaO2. Very little incisional discomfort--- has not taken Percocet all day. Did get sleep last night. tolerated advanced diet--small amounts. Good bowel movement and lots of gas Objective - Review of Systems Generalized/Overall Review: Reports: Chills, Fatigue - Mainly feels like he has no energy. Denies: Fever EENTM: Reports: No Symptoms Reported Respiratory: Denies: Cough, Shortness of Breath Cardiac: Denies: Chest Pain, Edema, Palpitations Abdominal: Reports: Other - Minimal abdominal discomfort. Good bowel movement and flatus Genitourinary Symptoms: Reports: No Symptoms Reported Musculoskeletal Complaints: Reports: No Symptoms Reported Neurological: Reports: No Symptoms Reported Skin: Reports: No Symptoms Reported - Vitals Vitals: Last Vital Signs Temp 37.1 C 10/06/19 15:00 Pulse 76 10/06/19 15:00 Resp 14 10/06/19 15:00 BP 127/68 10/06/19 15:00 Pulse Ox 95 10/06/19 15:00 - Exam Constitutional: Present: Oriented x3, Cooperative, No distress ENT Exam: Present: normal ENT inspection Neck: Present: normal inspection Respiratory: Present: normal breath sounds Cardiovascular/Chest: Present: regular rate, rhythm Abdomen: Present: soft, nontender, other - Still a little protuberant but over all soft. Incision appears to be healing well. 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 as tested, no motor/sensory deficits, depressed affect Appearance: Present: appropriate appearance, appropriate insight, no memory impairment Eye contact: Present: cooperative, good eye contact, normal speech Thoughts: Present: normal thought pattern Cauti Physician Documentation - Urinary Catheter Management Urethral (Chavez) Date of Removal: 10/02/19 Time of Removal: 14:40 Assessment/Plan - Problems/Diagnosis (1) Acute appendicitis Problem: Acute Qualifiers: Acute appendicitis type: with generalized peritonitis Appendicitis gangrene presence: unspecified whether gangrene present Appendicitis perforation presence: unspecified whether perforation present Appendicitis abscess presen ce: unspecified whether abscess present Qualified Code(s): K35.20 - Acute appendicitis with generalized peritonitis, without abscess Narrative: We will change to plain Tylenol for pain control. He will try to use Benadryl to get another good night sleep tonight. He has been walking well Did discuss possible discharge home tomorrow (2) Hypertension Problem: Chronic Qualifiers: Hypertension type: essential hypertension Qualified Code(s): I10 - Essential (primary) hypertension Narrative: Stable (3) Hyperlipidemia Problem: Acute Qualifiers: Hyperlipidemia type: unspecified Qualified Code(s): E78.5 - Hyperlipidemia, unspecified
[2019-10-06] MEDS: diphenhydrAMINE HCL 50 MG/ML VIAL IV PRN (20:24)
[2019-10-07] MEDS: oxyCODONE HCL/ACETAMINOPHEN 1 TAB TABLET PO PRN ×2 (02:00→14:53)
[2019-10-07] MEDS: METOPROLOL TARTRATE 25 MG TABLET PO SCH (08:31)
[2019-10-07] MEDS: amLODIPine BESYLATE 5 MG TABLET PO SCH (08:31)
[2019-10-07] MEDS: PANTOPRAZOLE SODIUM 40 MG in NORMAL SALINE 100 ML IV SCH (08:34)
--- NOTE | 2019-10-07 11:07 | DS ---
(1) Acute appendicitis Problem: Resolved Qualifiers: Acute appendicitis type: with generalized peritonitis Appendicitis gangrene presence: unspecified whether gangrene present Appendicitis perforation presence: unspecified whether perforation present Appendicitis abscess presence: unspecified whether abscess present Qualified Code(s): K35.20 - Acute appendicitis with generalized peritonitis, without abscess (2) Hypertension Problem: Chronic Qualifiers: Hypertension type: essential hypertension Qualified Code(s): I10 - Essential (primary) hypertension (3) Hyperlipidemia Problem: Chronic Qualifiers: Hyperlipidemia type: unspecified Qualified Code(s): E78.5 - Hyperlipidemia, unspecified (4) Small bowel obstruction due to adhesions Problem: Resolved Date of Discharge:: 10/07/19 Hospital Course: He initially presented to the ER in [place] with abdominal pain. A CT scan there without contrast was done. He was sent home with a diagnosis of enteritis. He continued to have pain so he presented to the ER here, where a CT scan with p.o. contrast demonstrated acute appendicitis. He was taken to the operating room where a laparoscopic appendectomy for severe acute appendicitis was done. Postoperatively he continued to demonstrate abdominal distention and no return of bowel function despite a prolonged trial of NG suction. Repeat CT scan showed distal small bowel obstruction. He was taken back to the operating room for exploratory laparotomy and adherent inflamed terminal ileum was mobilized fr om the right lower quadrant to relieve the obstruction. Operatively he gradually regained bowel function and by the day of discharge was tolerating a regular diet, ambulating without assistance, his incision appeared to be clean and healing well. He will be discharged home to resume his usual home medications. He will take Tylenol as needed for discomfort. A return office appointment will be made fo 10/15/2019 r Procedures Performed: see notes below - Laparoscopic appendectomy. Exploratory laparotomy with lysis of adhesions Results and Findings: Lab Pending Results 09/22/19 16:22: WBC 9.9, RBC 5.91, Hgb 17.6, Hct 51.3, MCV 86.8, MCH 29.8, MCHC 34.3, RDW 12.6, Plt Count 206, MPV 9.8, Immature Gran % (Auto) 0.20, Immature Gran # (Auto) 0.02, Neutrophils % 86.3 H, Lymphocytes % 6.1 L, Monocytes % 7.1, Eosinophils % 0.0, Basophils % 0.3, Nucleated RBC % 0.0, Neutrophils # 8.5 H, Lymphocytes # 0.60 L, Monocytes # 0.7, Eosinophils # 0.0, Absolute Basophils 0.0 09/22/19 16:22: Sodium 137, Plasma Sodium 138, Potassium 3.3 L, Chloride 99, Carbon Dioxide 24.2, Anion Gap 17.1 H, BUN 19, Creatinine 1.43 H, Est GFR (Non- Af Amer) 51 L D, BUN/Creatinine Ratio 13.3, Random Glucose 134 H, Calcium 8.8, Calcium Adj for Albumin 8.6, Total Bilirubin 4.8 H, AST 31, ALT 27, Alkaline Phosphatase 71, C-Reactive Prot, Quant 19.4 H, Total Protein 7.9, Albumin 3.9, Amylase 57, Lipase 185 09/22/19 : Gastric Occult Blood Positive H 09/22/19 23:59: Pathology Specimen Spec to path 09/23/19 21:13: WBC 16.4 H D, RBC 4.81, Hgb 14.6, Hct 42.2, MCV 87.7, MCH 30.4, MCHC 34.6, RDW 12.7, Plt Count 189, MPV 10.0, Immature Gran % (Auto) 0.90 H, Immature Gran # (Auto) 0.15 H, Neutrophils % 89.4 H, Lymphocytes % 4.3 L, Monocytes % 5.3, Eosinophils % 0.0, Basophils % 0.1, Nucleated RBC % 0.0, Neutrophils # 14.7 H, Lymphocytes # 0.71 L, Monocytes # 0.9, Eosinophils # 0.0, Absolute Basophils 0.0 09/24/19 07:20: WBC 14.8 H, RBC 4.42 L, Hgb 13.4 L, Hct 38.9 L, MCV 88.0, MCH 30.3, MCHC 34.4, RDW 12.7, Plt Count 208, MPV 10.3, Immature Gran % (Auto) 0.50 H, Immature Gran # (Auto) 0.07 H, Neutrophils % 89.3 H, Lymphocytes % 5.7 L, Monocytes % 4.4, Eosinophils % 0.0, Basophils % 0.1, Nucleated RBC % 0.0, N eutrophils # 13.3 H, Lymphocytes # 0.84 L, Monocytes # 0.7, Eosinophils # 0.0, Absolute Basophils 0.0 09/24/19 07:20: Sodium 137, Plasma Sodium 137, Potassium 3.5, Chloride 101, Carbon Dioxide 29.6, Anion Gap 9.9, BUN 33 H D, Creatinine 1.41 H, Est GFR (Non- Af Amer) 51 L, BUN/Creatinine Ratio 23.4 H, Random Glucose 127 H, Calcium 8.2 09/25/19 07:10: WBC 8.3 D, RBC 4.11 L, Hgb 12.4 L, Hct 36.6 L, MCV 89.1, MCH 30.2, MCHC 33.9, RDW 13.0, Plt Count 196, MPV 10.1, Immature Gran % (Auto) 0.40, Immature Gran # (Auto) 0.03, Neutrophils % 79.4 H, Lymphocytes % 11.4 L, Monocytes % 6.8, Eosinophils % 1.8, Basophils % 0.2, Nucleated RBC % 0.0, Neutrophils # 6.6 H, Lymphocytes # 0.94 L, Monocytes # 0.6, Eosinophils # 0.2, Absolute Basophils 0.0 09/26/19 14:59: Sodium 136, Plasma Sodium 136, Potassium 3.6, Chloride 100, Carbon Dioxide 32.0, Anion Gap 7.6, BUN 17, Creatinine 1.12, Est GFR (Non-Af Amer) 67 D, BUN/Creatinine Ratio 15.2, Random Glucose 118 H, Calcium 7.9 09/29/19 23:45: Stl C.difficile Tox A&B Negative Discharge Location: Home Disposition: Home self-care Condition: Good Discharge Activity: Activity as tolerated, No Lifting Discharge Diet: General/regular food Problem Oriented Discharge Instructions to Patient/Family: Exploratory Laparotomy, Adult, Care After Additional Patient Instructions (free text): Establish with a PCP [facility] Complete Home Medications List: Complete Home Medication List: Aspirin [Aspirin Chewable] 81 mg PO DAILY 04/09/16 Metoprolol Tartrate [Lopressor] 25 mg PO BID 04/09/16 Simvastatin [Zocor] 40 mg PO HS 04/09/16 amLODIPine BESYLATE [Norvasc] 5 mg PO DAILY 09/22/19
[2019-10-07 15:07] VITALS: BP 121/71
== END 2019-10-07 16:10 | disposition home or self-care (01) | DRG 336 ==
LOC: ER 15:45 → AMB 20:36 → MS 20:36 → AMB 21:05 → OBSVTOIN 22:02
PROVIDERS: ADMIT Surgery; ATTEND Surgery
CPT/HCPCS: 36415; 71010; 71020; 71045; 71046; 74019; 74020; 74177; 80048; 80053; 82150; 82272; 83690; 85025; 86140; 87493; 88304; 96361; 96365; 96366; 96375; 96376; 99285; G0378; J2405; Q9963; Q9967